=== PATIENT | female | born 1940 | race American Indian/Alaskan Native ===

== ENCOUNTER 2020-03-20 07:28 | Day surgery (SDC) | payer MEDICARE, OTHER ==
[2020-03-20] MEDS ORDERED: ASPIRIN EC 325 MG TAB PO ONE (08:20)
[2020-03-20] MEDS ORDERED: ASPIRIN EC 325 MG TAB PO SCH (08:21)
[2020-03-20] MEDS ORDERED: MIDAZOLAM 2 MG/2 ML INJ ONE ×2 (08:55→09:00)
[2020-03-20] MEDS ORDERED: fentaNYL 100 MCG/2 ML INJ ONE ×2 (08:55→09:00)
[2020-03-20] MEDS ORDERED: NITROGLYCERIN SYRINGE 3 ML ONE (08:56)
[2020-03-20] MEDS ORDERED: VERAPAMIL 5 MG/2 ML INJ ONE (08:56)
[2020-03-20] MEDS ORDERED: HEPARIN 10,000 UNITS/10 ML VIAL ONE (08:56)
[2020-03-20] MEDS ORDERED: HEPARIN/NS 5000 UNIT/500ML 1,000 ML IR ONE (08:56)
[2020-03-20] MEDS ORDERED: LIDOCAINE (2%) 20 MG/1 ML VIAL 20 ML MDV INFILTRATI ONE (08:56)
[2020-03-20] MEDS ORDERED: SODIUM CHLORIDE 0.9% 500 ML 500 ML IV SCH (09:00)
[2020-03-20] MEDS ORDERED: traMADol 50 MG TAB PO PRN (10:08)
[2020-03-20] MEDS ORDERED: HYDROcodone/ACETAMINOPHEN 5-325 MG TAB PO PRN (10:08)
--- NOTE | 2020-03-20 10:12 | Short Stay Summary ---
Short Stay Documentation Date of service: 03/20/20 - History H&P: obtained from office - Allergies and Medications Current Medications: Allergies No Known Allergies Allergy (Verified 03/20/20 08:18) Home Medications Medication Instructions Recorded Confirmed Last Taken Type Amlodipine Besylate [Norvasc] 5 mg PO DAILY 03/20/20 03/20/20 03/19/20 History 1 tab AtorvaSTATin [Lipitor] 10 mg PO QHS 03/20/20 03/20/20 03/19/20 History 1 tab Bumetanide 0.5 mg PO DAILY 03/20/20 03/20/20 03/19/20 History 1 tab Donepezil HCl [Donepezil HCl Odt] 10 mg PO DAILY 03/20/20 03/20/20 03/19/20 History 1 tab Fluticasone/Vilanterol [Breo 25 - 100 mcg INHALATION 5XD 03/20/20 03/20/20 03/19/20 History Ellipta 100-25 Mcg INH] ISOSORBIDE MONOnitrate [Imdur ER] 30 mg PO DAILY 03/20/20 03/20/20 03/19/20 History 1 tab Potassium Chloride [K-Dur] 10 meq PO QDAY 03/20/20 03/20/20 03/19/20 History 1 tab Active Medications Aspirin (Ecotrin) 325 mg PO ONCE JOSUE Stop: 03/20/20 10:21 Last Admin: 03/20/20 08:30 Dose: 325 mg Documented by: Sodium Chloride (Nacl 0.9% 500 Ml) 500 mls @ 50 mls/hr IV DIRECT JOSUE Stop: 03/20/20 18:59 Last Admin: 03/20/20 08:31 Dose: 50 mls/hr Documented by: - Brief post op/procedure progress note Date of procedure: 03/20/20 Pre-op diagnosis: sob Post-op diagnosis: same Procedure: see report Anesthesia: local Estimated blood loss: minimal Pathology: none - Disposition Condition at discharge: Good Disposition: [id number] TO HOME OR SELFCARE - Discharge Diagnoses (1) CAD (coronary artery disease) Status: Chronic Qualifiers: Coronary Disease-Associated Artery/Lesion type: [place] artery [place] vs. transplanted heart: [place] heart Associated angina: without angina Qualified Code(s): I25.10 - Atherosclerotic heart disease of [place] coronary artery without angina pectoris (2) Hypertension Status: Chronic Qualifiers: Hypertension type: essential hypertension Qualified Code(s): I10 - Essential (primary) hypertension (3) Hyperlipemia, mixed Status: Chronic (4) SOBOE (shortness of breath on exertion) Status: Chronic Short Stay Discharge Plan Activity: advance as tolerated Diet: low fat, low cholesterol Wound: keep clean and dry Follow up with: HEATHER SPENCER MD [Primary Care Provider] - 7 Days
--- NOTE | 2020-03-20 10:20 | Cardiac Catherization Report ---
LEFT HEART CATHETERIZATION CLINICAL INFORMATION: This is an 80-year-old female with hypertension, hyperlipidemia, coronary artery disease, has persistent shortness of breath with exertion despite medical therapy, is here for left heart catheterization. Procedure was done with moderate sedation started 9:39 and finished at 9:50, which is 21 minutes of moderate sedation. Procedure was performed via the right radial artery, sterile technique, local anesthesia, 6-[place] radial sheath inserted. There was tortuosity in the right innominate and subclavian, used a Glidewire and was able to engage left system with JL3.5 catheter with following findings: 1. Left main is large and patent. LAD is a large caliber vessel, mild luminal irregularities, mid 20%, distal at the apex is 60-70% lesion improving from several years ago. Diagonal 1 small to medium caliber and patent. Circumflex is large caliber vessel, that is with moderate to severe tortuosity, high OM1 is a medium caliber vessel patent. OM2 is a small to medium caliber and patent and OM3 small caliber vessel. RCA was engaged with a JR4 catheter, is a large dominant vessel is patent with mild luminal irregularities. PDA and PLV are small to medium caliber and patent. LV gram done in MATTHEW and CASE view shows normal LV function, LVEDP 26 mmHg, LV is 129. Aortic is 120/62. No gradient across the aortic valve on pullback. 5-[place] catheters all taken over guidewire, 6-[place] radial sheath was discontinued. Radial band applied. No hematoma, no bleeding. SUMMARY: Left main patent, LAD mid 20%, distal apex 60-70% improvement from several years ago. Circumflex, moderate to severe tortuosity. OM1 andOM2 are patent. OM3 small caliber and patent, RCA large, dominant vessel, patent with mild luminal irregularities. PDA, PLV are patent, normal LV function. Continue medical management. JOB# [id number] ASHELY/ANSHUL
[2020-03-20 12:04] VITALS: BP 127/55
== END 2020-03-20 13:30 | disposition home or self-care (01) ==
LOC: CATHLABREC 07:28
PROVIDERS: ATTEND Internal Medicine
DX: R06.02 Shortness of breath (principal); I10 Essential (primary) hypertension; I25.10 Atherosclerotic heart disease of native coronary artery without angina pectoris; E78.2 Mixed hyperlipidemia; G47.30 Sleep apnea, unspecified; Z98.49 Cataract extraction status, unspecified eye; Z79.899 Other long term (current) drug therapy; Z90.710 Acquired absence of both cervix and uterus; Z98.890 Other specified postprocedural states
CPT/HCPCS: 93005; 93458; 99156; C1769; C1894; J1644; J2250; J3010; Q9967